=== PATIENT | female | born 1990 | race Caucasian/White ===

== ENCOUNTER 2020-11-04 21:54 | Emergency (ER) | payer MEDICAID, SELFPAY ==
[2020-11-04 22:00] VITALS: BP 104/49; PULSE 75; RESP 18; TEMP 37.2; O2SAT 98
[2020-11-04 22:08] VITALS: BP 104/49; BP 128/66; PULSE 75; PULSE 80; RESP 18; TEMP 37.2; O2SAT 98; BMI 25.4
--- NOTE | 2020-11-04 22:41 | PC.NURSE ---
Pt agreeable to private branch exchange service adviser- belongings in locker 10. Report given to jeanine Belcher
--- NOTE | 2020-11-04 23:00 | PC.NURSE ---
ASSUMED CARE OF PT. PT MOVED TO 13H WITH SITTER AT BEDSIDE WITH PT. PT RESTING AND DENIES ANY COMPLAINTS AT THIS TIME. PT REMAINS CALM AND COOPERATIVE IN ED.
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
--- NOTE | 2020-11-05 03:09 | PC.NURSE ---
[facility] AT BEDSIDE FOR EVAL. PT UP TO RESTROOM FOR URINE SAMPLE TO LAB.
[2020-11-05 03:15] LABS: Glucose Urine UA NEG (NEG); Leukocyte Esterase Urine NEG (NEG); Nitrite Urine NEG (NEG); Specific Gravity - Urine >= 1.030 (1.005-1.025); Urine Blood TRACE (NEG); Urine Ketones NEG (NEG); Urine Protein TRACE MG/DL (NEG-TRACE)
[2020-11-05 03:16] LABS: Appearance Urine HAZY; Color Urine YELLOW
--- NOTE | 2020-11-05 03:19 | PC.NURSE ---
PT RESTING APPEARING COMFY IN STRETCHER. PT REQUESTING WATER TO DRINK FOR POSSIBLE URINE SAMPLE. PT DENIES ANY COMPLAINTS. PT DENIES S/H IDEATIONS.
[2020-11-05 03:24] LABS: UPreg QC Valid YES; Urine Pregnancy NEGATIVE (NEGATIVE)
[2020-11-05 03:25] LABS: Bacteria Urine 2+ /LPF; Mucus Urine 2+ /LPF; Squamous Epithelial Cell Urine 2+ /LPF
[2020-11-05 03:42] LABS: Amphetamine Screen Urine Not Detected (Not Detect); Barbiturates, Urine Not Detected (Not Detect); Benzodiazepines Screen Urine Not Detected (Not Detect); Cannabinoid Screen Urine POSITIVE (Not Detect); Cocaine Screen Urine POSITIVE (Not Detect); Opiate Screen Urine Not Detected (Not Detect); Phencyclidine Screen Urine Not Detected (Not Detect)
== END 2020-11-05 05:01 | disposition home or self-care (01) ==
PROVIDERS: Emergency Provider Emergency Medicine
DX: F41.1 Generalized anxiety disorder (principal); R45.851 Suicidal ideations; F43.0 Acute stress reaction; F32.9 Major depressive disorder, single episode, unspecified; F41.0 Panic disorder [episodic paroxysmal anxiety]; F14.10 Cocaine abuse, uncomplicated; Z63.79 Other stressful life events affecting family and household
CPT/HCPCS: 80307; 81001; 81025; 99283; 99284

== ENCOUNTER 2020-11-15 07:40 | Outpatient (RCR) | payer OTHER, SELFPAY | END 2020-11-15 23:55 | disposition home or self-care (01) | LOC: HO.PHPA 07:40 | PROVIDERS: Visit Provider Psychiatry & Neurology Psychiatry | DX: F33.2 Major depressive disorder, recurrent severe without psychotic features (principal); F41.1 Generalized anxiety disorder | CPT/HCPCS: 90791 ==

== ENCOUNTER 2020-11-27 09:45 | Outpatient (RCR) | payer OTHER, SELFPAY ==
[2020-11-21 11:56] VITALS: BMI 24.4
--- NOTE | 2020-11-21 12:13 | PC.NURSE ---
Patient is a 30 year old female who was referred by [facility] crisis on 11/15/20 however was not able to attend the [facility] program at that time. Patient continues to experience increased depression with passive Si and increase anxiety. Reports relationship issues with her who she stated has Bipolar d/o and PTSD and currently is not in treatment. Patient stated they argue a lot. She is also feeling overwhelmed with taking care of 4 children as she feels most of the care falls on her. Questioning whether she is going to stay in the relationship. Stated they have been together for 12 year and have known each other for 18 years. Patient reports poor sleep and appetite with weight loss d/t symptoms. Uses marijuana on occasion at night to sleep. Denied current SI however stated she was having SI to jump from a bridge. Patient reports no plans or intent to follow through with this. Patient gave verbal permission to email her a copy of her safety plan. She has the crisis number if needed. Patient currently is not on any medications and does not have a therapist or psychiatrist.
--- NOTE | 2020-11-21 15:15 | P.HPPSP_ITS ---
HPI Chief Complaint: depression Sources of Information: patient interviewed and chart reviewed HPI Narrative: 30 yo female, initially referred earlier in the month returns for sx of increased depression, anxiety, panic with some SOB. Pt reports sx are difficult to control and is looking to learn coping skills. Reports disturbed sleep with latency sx. Using cannabis to assist with this and it has worked well on an intermittent basis. Appetite is variable, SI-thoughts about jumping from a bridge without plan or intent I would never do this and leave my kids . Denies hx of ha, denies perceptual alterations and sx of psychosis. Reports sx onset ~age 12 with anxiety for the past six years after daughter was born. Anxiety turns to anger and frustration with the stressors of the children, with his own issues and living with mother in law for about a year now. Eleven yo son is disabled- with COVID and remote educational challenges pt's sx have exacerbated this year. Past Psychiatric History: IP: Denies OP: Denies Trials: [id number] Distress, another med she does not recall. Stopped treatment all together as it helps in the moment, but does not last . Intersted in med trial which was discussed. Medical Evaluation Reviewed: No (na) [facility] Medical History (Updated 11/21/20 @ 16:16 by Tricia Bentley APRN) Anxiety delivery delivered Cholecystectomy planned Depression Recurrent major depression-severe Surgical History H/O tubal ligation Family History: depression, anxiety pt believes mother takes Wellbutrin Social History: lives with , 11 yo who is disabled, 8 yo, 6 yo and 1 yo in mother in law's home credit control officer mom Completed tenth grade-would like to return to work and complete education at some time. Substance History: nicotine~4-5 daily cannabis occasionally for sleep anxiety Trauma History: yes Diagnostics Vital Signs (24Hr): Body Mass Index 24.4 Meds/Allergies Meds Narrative: no current meds pt reports Allergies Allergies Allergy/AdvReac Type Severity Reaction Status Date / Time No Known Allergies Allergy Verified 11/04/20 22:15 Mental Status Exam Mental Status Exam Patient Appearance: Appropriate Patient Orientation: Person, Place, Time and Situation Level of Consciousness: Alert Patient Behavior: Talkative Mood Description: Depressed, Anxious and Apprehensive Affect Description: Flat Patient Cognition Impaired: No Ability to Follow Directions: Good Speech Pattern: Clear and Spontaneous Speech Memory Description: Intact Hallucinations: None Delusions: Not Present Thought Process: Intact Thought Content: positive for Intact Depressive Symptoms: Increased Anxiety, Insomnia (latency sx at times), Increased Irritability, Changes in Appetite, Loss of Int. in Activity, Hopelessness, Unhappiness, Thoughts of /Suicide (denies intent), Low Self Esteem, Loss of Energy and Difficulty Concentrating Judgement: Good Assessment & Plan Assessment & Plan (1) Recurrent major depression-severe: Status: Acute Code(s): F33.2 - Major depressive disorder, recurrent severe without psychotic features Assessment and Plan: -labs-faxed orders to [facility] registration -Lexapro 5 mg daily #10 -Pt defined medication goals as to be more motivated, less anxious, be a better mom and have more energy. Discussed Wellbutrin as mom had success with this-it will ba a back up if lexapro is ineffective as pt is concerned about anxiety mgt. Certification I certify that partial hospital treatment is medically necessary due to the symptoms and problems resulting from the patient's mental illness and the failure to treat the patient at the partial hospital level of care would likely result in the patient requiring inpatient psychiatric care which could not be prevented at a less intensive level of care. Telehealth Telehealth Location of provider rendering services: practice address Location of patient: address on file Patient Identification confirmed using: Name, : Yes Telehealth method: video Patient verbally consented to treatment: Yes Patient verbally consented to billing insurance company: Yes Patient informed of any privacy concerns related to visit: Yes Time spent with patient (mins): 30
--- NOTE | 2020-11-23 14:26 | PC.NURSE ---
The clients case was opened in treatment team. I reviewed the clients treatment plan with her this morning and her dc date is planned for 12/07.
--- NOTE | 2020-11-26 14:36 | PC.NURSE ---
Called [facility] to make appointment for therapist and prescriber. Deborah states that she will call back
--- NOTE | 2020-11-28 10:07 | PC.NURSE ---
Pt did not attend programming this morning. When called pt reported just waking up and was very apologetic for missing the meeting. Pt reported she would be in tomorrow.
--- NOTE | 2020-11-28 14:36 | PC.NURSE ---
I called to check in with the client. She is okay she just overslept. She states that she will be in tomorrow and is aware that she shouldnt miss any more days.
--- NOTE | 2020-11-29 07:25 | PC.NURSE ---
Nancy from [facility] called me 0n 11/27/20 and gave me appointments for the client . Therapy with Georgia Parkinson 12/10/[address] at [address] Angeles 12/28/20 @ 2:20 with follow up 02/18/21 @ 2pm . I told Mirella about these appointments.
--- NOTE | 2020-11-30 08:52 | PC.NURSE ---
client called to cancel today because she has an appointment this morning .
--- NOTE | 2020-11-30 09:14 | PC.NURSE ---
Mirella was scheduled to see the the prescriber Arlet today however she called out today and yesterday d/t c/o migraine h/a which she states she has a HX of. She also has an appointment today per staff.
--- NOTE | 2020-11-30 11:55 | PC.NURSE ---
Patient called and requested refill of Lexapro stating she has 1 tab left. Stated she is tolerating the medication well, no side effects. Reports Migraine much better. When I spoke to her she had an appointment with a car dealership. Arlet Scott NP aware.
--- NOTE | 2020-12-03 10:53 | PC.NURSE ---
I called the client this morning when she wasn't in community meeting. She states that she overslept. We discussed making tomorrow her last day. She has out patient provider appointments ay [facility].
== END 2020-11-27 23:55 | disposition left against medical advice (07) ==
LOC: HO.PHPA 09:45
PROVIDERS: Visit Provider Psychiatry & Neurology Psychiatry
DX: F33.2 Major depressive disorder, recurrent severe without psychotic features (principal)
CPT/HCPCS: 90791; 90853

== ENCOUNTER 2021-04-09 18:55 | Emergency (ER) | payer MEDICAID, SELFPAY ==
[2021-04-09 19:28] VITALS: BP 109/54; PULSE 84; RESP 18; TEMP 36.9; O2SAT 100; BMI 23.4
--- NOTE | 2021-04-09 20:43 | ED_ITS ---
HPI - Dental/Oral General Chief complaint: Dental/Oral Stated complaint: DENTAL PAIN Time Seen by Provider: 04/09/21 20:42 Source: patient Mode of arrival: ambulatory Limitations: no limitations History of Present Illness HPI Narrative: 31 y/o female presenting with dental pain. She has not seen a dentist in years. She often has intermittent dental pains that last a few days and then resolve with NSAIDS. She has multiple decaying teeth. About 2-3 days ago her right lower dental pain recurred but this time is accompanied by right facial swelling. She denies fever, chills, N/V/D. She is able to eat and drink soft things but has pain with eating. MD Complaint: tooth pain Location: Tooth # Teeth map: 1. tenderness with assocaited gingival tenderness and fluctuance Onset (ago): day(s) (3) Duration: constant Severity: severe Severity scale (1-10): 10 Relieving factors: NSAIDs Exacerbating factors: chewing Context: history of dental caries and poor dental care Associated symptoms: gum swelling Treatment prior to arrival: topical analgesic and oral analgesic Related Data Previous Rx's Medication Instructions Recorded amoxicillin-pot clavulanate 1 tab PO BID #20 tab 04/09/21 [Augmentin] chlorhexidine gluconate [Peridex] 15 ml BUCCAL BID #118 ml 04/09/21 hydrocodone-acetaminophen 1 tab PO Q6H PRN #6 tab 04/09/21 ibuprofen 600 mg PO Q8H PRN #20 tab 04/09/21 Allergies Allergy/AdvReac Type Severity Reaction Status Date / Time No Known Allergies Allergy Verified 04/09/21 19:34 Review of Systems Review of Systems: Constitutional: No Fever, No Chills ENT/Mouth: No sore throat, No Rhinorrhea, No Swallowing Difficulty, +Dental pain, +Mouth swelling Eyes: No Eye Pain, No Swelling, No Redness Cardiovascular: No Chest Pain, No SOB Respiratory: No Cough, No Sputum Gastrointestinal: No Nausea, No Vomiting, No abdominal Pain Musculoskeletal: No joint pain, No Myalgias Skin: No Skin Lesions, No rash Neuro: No Weakness, No Numbness, No Dizziness, + Headache Heme/Lymph: No Bruising, No Lymphadenopathy PMFSH Past Medical History Attestation statement: The following information was validated with the patient. Medical History Anxiety Depression PTSD (post-traumatic stress disorder) Surgical History (Updated 04/09/21 @ 19:32 by Yokasta Small) H/O tubal ligation Social History Social History Advance Directives: No Advance Directives Information Provided: No Patient : No Physical Exam Vital Signs: Vital Signs: Last Vital Signs Temp 98.5 F 04/09/21 19:28 Pulse 84 04/09/21 19:28 Resp 18 04/09/21 19:28 BP 109/54 L 04/09/21 19:28 Pulse Ox 100 04/09/21 19:28 Body Mass Index 23.4 Const: General: cooperative and no acute distress Nutritional Appearance: underweight Limitations: no limitations HENMT: Head: Yes normocephalic and Yes atraumatic Ears: hearing grossly normal bilaterally and TM's normal bilaterally General nose exam: Normal external nose present and Normal nares present Face and sinus: Yes edema (right lower mandibular swelling) Mouth: lip normal, tongue normal and moist mucous membranes Teeth and gingiva: abnormal tooth and associated gingiva lower right second molar tender, with associated gingival edema and with associated gingival fluctuance and gingiva abnormal edematous, with purulent discharge and tender Throat: Yes posterior oropharynx normal, Yes tonsils normal and Yes uvula midline Eyes: General: appearance normal, both eyes and all related structures Neck: Neck: Yes normal visual inspection, Yes full ROM, Yes no lymphadenopathy and No submandibular swelling Chest: Chest palpation & inspection: normal inspection of the chest Resp: Effort & Inspection: normal respiratory effort and able to speak in complete sentences Skin: General skin exam: no rashes or lesions noted Extrem: General: Yes normal to inspection Psych: Appearance: grossly normal Mental Status: mental status grossly normal Speech and movement: Clear speech present Course Course Course Narrative: 31 y/o female with poor dental care presenting with pain and swelling of her right lower molar. Exam is consistent with dental abscess. Lollicaine applied and abscess was incised with good effect. pain medication gi minerva as well as antibiotics. Emergency dental list given and importance of follow up discussed. Stable for d/c home with pain control and antibiotics. Procedures Abscess I/D Site: oral Side (if applicable): right Local Anesthetic: other anesthetic (topical lollicaine) Technique: incised with blade Sent for culture/gram staining?: No Irrigation: Yes Packing used?: none Complications: pain Critical Care Time Critical Care Time Critical Care Time: No Discharge Plan Discharge Clinical Impression: Dental abscess Patient Disposition: Home, Self-Care Instructions: Dental Abscess (ED) Additional Instructions: Take the prescribed antibiotic as directed. Start tomorrow morning because you were given the 1st dose today in the ER. Call Dental provider 1st thing tomorrow morning to arrange to be seen MAURO Take Ibuprofen 600 mg alan 6 hours Take the prescribed Vicoden as needed for severe pain. Do not drive after taking this medication. Use warm salt water gargles several times per day Use the prescribed mouthwash two times per day, swish and spit. If you develop new or worsening symptoms call 911 or come back to the ER for further evaluation. Prescriptions: New amoxicillin-pot clavulanate [Augmentin] 875-125 mg tablet 1 tab PO BID Qty: 20 RF: 0 ibuprofen 600 mg tablet 600 mg PO Q8H PRN (Reason: pain) Qty: 20 RF: 0 hydrocodone-acetaminophen 5-325 mg tablet 1 tab PO Q6H PRN (Reason: pain) Qty: 6 RF: 0 chlorhexidine gluconate [Peridex] 0.12 % mouthwash 15 ml buccal BID Qty: 118 RF: 0
--- NOTE | 2021-04-09 21:17 | PC.NURSE ---
DENTAL ABCESS TO RIGHT LOWER GUMS DRAINED BY IRINEO LOZOYA.
[2021-04-09] MEDS: Amoxicillin/Potassium Clav 875 MG TABLET PO (21:36)
[2021-04-09] MEDS: Ketorolac Tromethamine 15 MG/ML VIAL IM (21:36)
[2021-04-09] MEDS: HYDROcodone Bit/Acetam 5/325 TABLET 1 TAB PO (21:37)
== END 2021-04-09 21:43 | disposition home or self-care (01) ==
PROVIDERS: Emergency Provider Emergency Medicine
DX: K04.7 Periapical abscess without sinus (principal); K08.89 Other specified disorders of teeth and supporting structures
CPT/HCPCS: 41800; 96372; 99284; J1885